=== PATIENT | male | born 1935 | race Caucasian/White ===

== ENCOUNTER 2017-04-24 15:06 | Emergency (ER) | payer MEDICARE ==
[2017-04-24] MEDS ORDERED: Lidocaine 1% 20 ML MDV ONE (15:16)
== END 2017-04-24 15:32 | disposition home or self-care (01) ==
LOC: NAV ERS 15:06
DX: M79.661 Pain in right lower leg (principal); I10 Essential (primary) hypertension; E78.5 Hyperlipidemia, unspecified; Z87.891 Personal history of nicotine dependence; W45.8XXA Other foreign body or object entering through skin, initial encounter
CPT/HCPCS: 10120; J2001